=== PATIENT | male | born 1995 | race African-American/Black ===

== ENCOUNTER 2021-01-30 18:11 | Emergency (ER) | payer OTHER ==
[~2021-01-30] VITALS: Ht 180.3 cm; Wt 127.3 kg
[2021-01-30] MEDS ORDERED: HYDROCODONE/ACETAMINOPHEN 5-325 MG TABLET PO ONE (18:45)
[2021-01-30 21:07] VITALS: BP 139/82
== END 2021-01-30 21:10 ==
LOC: EMS 18:16
DX: S13.4XXA Sprain of ligaments of cervical spine, initial encounter (principal); M54.5 Low back pain; Z87.891 Personal history of nicotine dependence; V79.50XA Passenger on bus injured in collision with unspecified motor vehicles in traffic accident, initial encounter; Y93.89 Activity, other specified; Y92.89 Other specified places as the place of occurrence of the external cause; Y99.8 Other external cause status
CPT/HCPCS: 70450; 71045; 72100; 72125; 99285